=== PATIENT | male | born 2000 | race Caucasian/White ===

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

== ENCOUNTER 2021-02-05 11:07 | Outpatient (REF) | payer BC, SELFPAY ==
[2021-02-06 14:55] LABS: Chlamydia Result Negative (Negative); GC Result Negative (Negative)
== END 2021-02-05 11:08 | disposition home or self-care (01) ==
LOC: NCHCN 11:07
PROVIDERS: PCP Specialist/Technologist Athletic Trainer; Visit Provider Nurse Practitioner Family
DX: Z13.9 Encounter for screening, unspecified (principal); Z78.9 Other specified health status
CPT/HCPCS: 87491; 87591

== ENCOUNTER 2022-02-06 20:26 | Outpatient (REF) | payer BC, SELFPAY ==
[2022-02-09 10:58] LABS: Hemoglobin S Screen Negative (Negative)
== END 2022-02-06 20:27 | disposition home or self-care (01) ==
LOC: NCHCN 20:26
PROVIDERS: PCP Specialist/Technologist Athletic Trainer; Visit Provider Nurse Practitioner Family
DX: Z00.00 Encounter for general adult medical examination without abnormal findings (principal); Z13.0 Encounter for screening for diseases of the blood and blood-forming organs and certain disorders involving the immune mechanism
CPT/HCPCS: 85660

== ENCOUNTER 2022-07-27 11:12 | Outpatient (REF) | payer BC, SELFPAY ==
[2022-07-27 16:35] LABS: HGB 14.8 g/dL (13.5-17.5); MCH 29.2 pg (27.0-33.0); MCHC 33.6 % (32.0-36.0); MCV 87 fL (80-95); MPV 10.6 fL (8.0-11.0); Platelet Count 226 10^3/uL (130-400); RBC 5.06 10^6/uL (4.36-5.78); RDW 11.9 % (11.8-14.1); RDW-SD 38.2 fL; WBC 4.37 10^3/uL (4.4-10.8)
[2022-07-27 17:05] LABS: TSH (W/Ref FT4) 1.02 uIU/mL (0.36-3.74)
== END 2022-07-27 11:13 | disposition home or self-care (01) ==
LOC: NCHCN 11:12
PROVIDERS: PCP Specialist/Technologist Athletic Trainer; Visit Provider Nurse Practitioner Family
DX: G47.00 Insomnia, unspecified (principal)
CPT/HCPCS: 85027; 84443

== ENCOUNTER 2023-12-13 18:41 | Outpatient (REF) | payer BC, SELFPAY ==
[2023-12-15 11:05] LABS: HBs Antibody, Quant 9.1 mIU/mL (See Note); Hepatitis B Surface Ab Negative (See Note)
== END 2023-12-13 18:42 | disposition home or self-care (01) ==
LOC: NCHCN 18:41
PROVIDERS: PCP Specialist/Technologist Athletic Trainer; Visit Provider Nurse Practitioner Family
DX: Z00.00 Encounter for general adult medical examination without abnormal findings (principal)
CPT/HCPCS: 86706

== ENCOUNTER 2025-02-26 18:09 | Outpatient (REF) | payer BC, SELFPAY ==
[2025-02-26 19:20] LABS: Abs Immature Grans 0.01 10^3/uL (0.0-0.06); HCT 44.2 % (40.0-50.0); HGB 14.6 g/dL (13.5-17.5); Immature Grans % 0.1 %; MCH 28.6 pg (27.0-33.0); MCHC 33.0 % (32.0-36.0); MCV 87 fL (80-95); MPV 10.4 fL (8.0-11.0); Platelet Count 216 10^3/uL (130-400); RBC 5.10 10^6/uL (4.36-5.78); RDW 12.5 % (11.8-14.1); RDW-SD 40.0 fL; WBC 7.00 10^3/uL (4.4-10.8)
[2025-02-26 19:31] LABS: ALT 35 U/L (16-63); AST 33 U/L (15-37); Albumin 4.6 g/dL (3.4-5.0); Alkaline Phosphatase 79 U/L (46-116); Anion Gap 9.5 mmol/L (3-11); BUN 16 mg/dL (7-18); Bilirubin, Total 0.3 mg/dL (0.2-1.0); CO2 29.5 mmol/L (21.0-32.0); Calcium 9.2 mg/dL (8.5-10.1); Chloride 103 mmol/L (98-107); Estimated GFR 96.74 (mL/min/1.73m2); Glucose 88 mg/dL (74-106); Potassium 4.0 mmol/L (3.5-5.1); Sodium 142 mmol/L (136-145); Total Protein 7.6 g/dL (6.4-8.2)
[2025-02-27 19:54] LABS: Hepatitis C Ab w Rflx HCV PCR Negative (Negative)
[2025-02-27 19:57] LABS: HIV-1/2 Ag & Ab Screen Negative (Negative)
== END 2025-02-26 18:10 | disposition home or self-care (01) ==
LOC: NCHCN 18:09
PROVIDERS: PCP Specialist/Technologist Athletic Trainer; Visit Provider Nurse Practitioner Family
DX: Z00.00 Encounter for general adult medical examination without abnormal findings (principal)
CPT/HCPCS: 80053; 86803; 87389; 85025